=== PATIENT | female | born 1985 ===

== ENCOUNTER 2019-06-28 05:30 | Inpatient (IN) | payer BC ==
--- NOTE | 2019-06-27 17:01 | PDOC.LDHP ---
Labor and Delivery H&P Chief complaint: scheduled induction Current gestational age (weeks): 41 Due date: 06/16/20 Dating criteria: last menstrual period Grav: 2 Para: 1 OB History Details: PROM at 39week, pit augmentation needed, x 1 Current complications: other (post dates) Current medications: pre- vitamins Social history: none - Physical Exam Vital signs reviewed and normal: yes General: NAD, resting Lungs: nonlabored breathing Abdomen: gravid FHT: category 1 - Vaginal Exam cm dilated: 5 Effacement: 90% Station: -3 - OB Labs Blood type: O RH: positive Antibody Screen: negative HIV: negative RPR: negative HEPSAg: negative 1 hour GCT: negative GBS: negative Urine drug screen: negative Rubella: immune - Assessment L&D Assessment: medically indicated induction - Plan Plan: admit to L&D, labor augmentation if indicated, other (AROM for IOL)
[2019-06-28] MEDS ORDERED: Promethazine HCl 25 MG/ML VIAL IM PRN (08:57)
[2019-06-28] MEDS ORDERED: Lidocaine 1% (PF) 30 ML VIAL SC PRN (08:57)
[2019-06-28] MEDS ORDERED: Methylergonovine 0.2 MG/ML VIAL IM PRN (08:57)
[2019-06-28] MEDS ORDERED: Carboprost 250 MCG/ML AMP IM PRN (08:57)
[2019-06-28] MEDS ORDERED: hydrALAZINE 20 MG/ML VIAL SLOW IVP PRN (08:57)
[2019-06-28] MEDS ORDERED: Ondansetron PF 4 MG/2 ML Vial IVP PRN (08:57)
[2019-06-28] MEDS ORDERED: HYDROcodone/Acetaminophen 5/325 mg Tablet PO PRN ×2 (08:57)
[2019-06-28] MEDS ORDERED: Diphenoxylate HCl/Atropine Tablet PO PRN ×2 (08:57)
[2019-06-28] MEDS ORDERED: Ibuprofen 800 MG TAB PO PRN (08:57)
[2019-06-28] MEDS ORDERED: Lactated Ringer's 1,000 ML IV PRN (08:57)
[2019-06-28] MEDS ORDERED: Misoprostol 200 MCG TAB PR PRN (08:57)
[2019-06-28] MEDS ORDERED: NS / Oxytocin 40 units/1000ml 1,000 ML IV PRN (08:57)
[2019-06-28 10:12] LABS: Hemoglobin 12.2 g/dL (12.0-16.0); Mean Corpuscular HGB CONC 33.9 g/dL (32.0-36.0); Mean Corpuscular Hemoglobin 28.8 pg (27.0-31.0); Mean Corpuscular Volume 84.8 fL (78.0-98.0); Platelet Count 244 thou/uL (130-400); RBC Distribution Width 12.3 % (11.5-14.5); Red Blood Cell (RBC) Count 4.23 mill/uL (4.20-5.40); White Blood Cell (WBC) Count 8.7 thou/uL (4.8-10.8)
[2019-06-28 10:51] LABS: Syphilis Antibody Nonreactive (Nonreactive); Syphilis Antibody Index 0.05 S/CO (<1.00 Non-Reactive)
[2019-06-28 10:52] LABS: HBSAg Index 0.34 S/CO (0-0.99); Hep B Surf Ag Non-Reactive S/CO (NonReactive)
[2019-06-28 11:15] VITALS: BMI 30.1
--- NOTE | 2019-06-28 17:13 | PDOC.LDPN ---
Labor & Delivery Progress Note - Subjective Subjective: comfortable - Objective Vital signs reviewed and normal: yes General: NAD, resting Uterine fundus: non tender FHT: category 1 - Assessment (1) 41 weeks gestation of Code(s): Z3A.41 - 41 WEEKS GESTATION OF Current Visit: Yes Status : Acute Plan: pitocin for augmentation
[2019-06-28] MEDS ORDERED: NS w/ Oxytocin 10 units 500 ML IV SCH (17:15)
--- NOTE | 2019-06-29 00:49 | PDOC.OPDEL ---
OB Operative/Delivery Note Delivery Dr/Surgeon: Cas dee Pre-Delivery Diagnosis: active labor, medically indicated induction Procedure/Post Delivery Dx: spontaneous vaginal delivery Weeks gestation: 41 - Findings A Sex: male Weight: 8 lb 6 oz - 1 min: 8 - 5 min: 9 - Additional Findings/Plan Placenta delivered: spontaneous Repaired Obstetrical Laceration: 1st degree Estimated blood loss: 200mL Post delivery plan: routine recovery
[2019-06-29] MEDS ORDERED: Methylergonovine 0.2 MG/ML VIAL IM PRN (02:25)
[2019-06-29] MEDS ORDERED: Benzocaine-Menthol 82.5 ML CAN TOP PRN (02:25)
[2019-06-29] MEDS ORDERED: HYDROcodone/Acetaminophen 5/325 mg Tablet PO PRN ×2 (02:25)
[2019-06-29] MEDS ORDERED: hydrALAZINE 20 MG/ML VIAL SLOW IVP PRN (02:25)
[2019-06-29] MEDS ORDERED: Adacel (T-DAP) 0.5 ML SYRINGE IM ONE (02:25)
[2019-06-29] MEDS ORDERED: Bisacodyl 10 MG SUPP PR PRN (02:25)
[2019-06-29] MEDS ORDERED: Milk Of Magnesia 30 ML UDCUP PO PRN (02:25)
[2019-06-29] MEDS ORDERED: NS / Oxytocin 40 units/1000ml 1,000 ML IV SCH (02:25)
[2019-06-29] MEDS: Ibuprofen 800 MG TAB PO SCH ×3 (03:28→18:49)
--- NOTE | 2019-06-29 06:46 | PDOC.PP ---
Post Progress Note Post Day #: 1 Subjective: Pt id doing well. Breast feeding. She is swollen and having trouble urination. Her IV site also inflitrated, so the RN stopped the pitocin. PO intake tolerated: yes Flatus: yes Ambulation: yes Weight Weight 170 lb - Physical Examination General: NAD Cardiovascular: no m/r/g Respiratory: non-labored breathing Abdominal: lochia (moderate) Fundus firm & at: Right deviation +1 above U Skin: no rash Neurological: no gross focal deficits Psychiatric: A&Ox3, normal affect Result Diagrams: 06/28/19 09:47 Additional Labs: Post Labs Blood Type O POSITIVE 06/28/19 09:48 Hep Bs Antigen Non-Reactive S/CO (NonReactive) 06/28/19 09:48 (1) 41 weeks gestation of Code(s): Z3A.41 - 41 WEEKS GESTATION OF Status: Acute - Assessment/Plan A: G2 now Ps s/p following IOL at [id number] for post date. 1 degree laceration P: Discharge home tomorrow Urinate q 2hrs Ambulate 3 times in halls today Breast feed on demand
[2019-06-29] MEDS: Ferrous Sulfate 325 MG TAB PO SCH ×2 (11:20→18:18)
[2019-06-29] MEDS: Docusate Calcium (SURFAK) 240 MG CAP PO SCH ×2 (11:21→22:21)
[2019-06-30] MEDS: Ibuprofen 800 MG TAB PO SCH ×2 (05:44→14:15)
[2019-06-30 08:23] VITALS: BP 103/68; TEMP 98.3
[2019-06-30] MEDS: Ferrous Sulfate 325 MG TAB PO SCH (08:59)
[2019-06-30] MEDS: Docusate Calcium (SURFAK) 240 MG CAP PO SCH (09:28)
== END 2019-06-30 14:20 | disposition home or self-care (01) | DRG 807 ==
LOC: L&D-LIB 08:43 → L&D 06-29 10:06 → 3SW 06-29 13:33
PROVIDERS: ADMIT Student in an Organized Health Care Education/Training Program; ATTEND Student in an Organized Health Care Education/Training Program
PROC: 10E0XZZ Delivery of Products of Conception, External Approach (ICD-10-PCS; principal; 2019-06-29)
PROC: 0HQ9XZZ Repair Perineum Skin, External Approach (ICD-10-PCS; 2019-06-29)
PROC: 10907ZC Drainage of Amniotic Fluid, Therapeutic from Products of Conception, Via Natural or Artificial Opening (ICD-10-PCS; 2019-06-29)
PROC: 3E033VJ Introduction of Other Hormone into Peripheral Vein, Percutaneous Approach (ICD-10-PCS; 2019-06-29)
DX: O48.0 Post-term pregnancy (principal); Z37.0 Single live birth; Z3A.41 41 weeks gestation of pregnancy; O70.0 First degree perineal laceration during delivery
CPT/HCPCS: 36415; 85027; 86780; 86850; 86900; 86901; 87340; J2001; J2590